=== PATIENT | female | born 1955 | race Caucasian/White ===

== ENCOUNTER 2022-09-08 06:33 | Day surgery (SDC) | payer OTHER, SELFPAY ==
[2022-09-08] VITALS (7 sets, daily range): BP systolic 131–149; BP diastolic 65–80; PULSE 77–99; RESP 12–18; TEMP 36.6–36.7; O2SAT 95–97; BMI 27.3
[2022-09-08] MEDS: CEFAZOLIN 2 GM INJ IVP (06:45)
[2022-09-08] MEDS: lidocaine HCL 2 % MULTIDOSE 20 ML VIAL 7 ML INJECTION (07:26)
[2022-09-08] MEDS: BUPIVACAINE 0.5% 30 ML 5 ML INJECTION (07:26)
--- NOTE | 2022-09-08 07:55 | PM.ORPRC ---
Procedure Note Date of procedure: 09/08/22 Procedure: Preop diagnosis: Right thumb stenosing tenosynovitis Postop diagnosis: Right thumb stenosing tenosynovitis Procedure: Right thumb A1 santi release Anesthesia: Local Surgeon: Juwan King MD anesthesiologist assistant: BOYD Forbes EBL: 0 mL Complications: None Specimens: None Drains: None Preoperative antibiotics: Ancef 1 g Indications: The patient has a history of right thumb painful catching and locking. Despite appropriate non operative management including flexor tendon sheath corticosteroid injections they continue to have symptoms. Operative intervention was recommended. The risks, benefits alternatives and expected outcomes were discussed in detail. These included but were not limited to: Infection, bleeding, injury to blood vessel or nerve, venous thromboembolism. All questions were answered to their satisfaction. The patient was placed supine on the operating room table. Local anesthesia was established with 0.5% Marcaine without epinephrine and 2% lidocaine without epinephrine. The hand was prepped and draped in usual sterile fashion. The limb was elevated the forearm pneumatic tourniquet was inflated to 250 mm of mercury. A transverse incision was made in the MP flexion crease of the thumb. Subcutaneous dissection was taken through the palmar fascia to the flexor tendons with the tenotomy scissors. The A1 santi was released with the 15 blade and the tenotomy scissors. The edges of the A1 santi were sharply resected. Active flexion and extension of the thumb shows no catching or locking, no bowstringing of the flexor tendons. The wound was closed with interrupted nylon sutures. A dry dressing was applied the tourniquet was released. Sponge and needle counts were correct x 2. The patient tolerated the procedure well, there were no apparent complications. They were sent to same day surgery in satisfactory condition. Plan: Use of the hand as tolerates. Discontinue the intraoperative dressing on postoperative day 3 and may get the wound wet as tolerates. Follow up in the office in 2 weeks for a wound check and suture removal.
== END 2022-09-08 08:15 | disposition home or self-care (01) ==
PROVIDERS: PCP Physician Assistant Medical; Visit Provider Orthopaedic Surgery
PROC: (CPT 26055; principal; 2022-09-08 07:30)
DX: M65.311 Trigger thumb, right thumb (principal); M65.841 Other synovitis and tenosynovitis, right hand
CPT/HCPCS: 26055; J0690; J3490

== ENCOUNTER 2022-10-11 00:04 | Emergency (ER) | payer OTHER, SELFPAY ==
[2022-10-11 00:12] VITALS: BP 158/77; PULSE 86; RESP 16; TEMP 35.7; O2SAT 97; BMI 27.4
[2022-10-11] MEDS: TETANUS/DIPHTH/PERTUSSIS 0.5 ML SYRINGE IM (01:39)
--- NOTE | 2022-10-11 01:48 | ED_ITS ---
HPI - Wound/Laceration General Date Seen: 10/11/22 Chief Complaint: Laceration/Wound Stated Complaint: cut left thumb Time Seen by Provider: 10/11/22 00:16 Source: patient and family Mode of arrival: ambulatory Limitations: no limitations History of Present Illness HPI narrative: Patient is 58-year-old female who presents here after she lacerated her left thumb, on a pot approximately 5:00 p.m., it has been bleeding on and off she called her daughter bee and suggested that she comes in. Extremity Location: Left: hand Place: home Patient tetanus UTD: Yes Context: accidental Associated symptoms: none Related Data Home Medications Medication Instructions Recorded Confirmed amlodipine 5 mg tablet mg PO 08/21/22 09/21/22 azelastine 137 mcg (0.1 %) nasal 2 intranasal BID 08/21/22 09/21/22 spray aerosol hydroxyzine HCl 25 mg tablet mg PO 08/21/22 09/21/22 lorazepam 1 mg tablet mg PO PRN 08/21/22 09/21/22 metoprolol tartrate 50 mg tablet mg PO 08/21/22 09/21/22 triamcinolone acetonide 0.1 % 1 applic topical TID 08/21/22 10/11/22 topical cream aspirin 81 mg capsule 81 mg PO DAILY 10/11/22 10/11/22 Allergies Allergy/AdvReac Type Severity Reaction Status Date / Time atorvastatin Allergy Verified 10/11/22 00:16 azithromycin Allergy Verified 10/11/22 00:16 hydrocodone Allergy Verified 10/11/22 00:16 latex Allergy Verified 10/11/22 00:16 methylprednisolone Allergy Verified 09/08/22 06:43 Review of Systems Status of ROS: Reports: 6 or more systems reviewed and unremarkable except as noted in History and below [facility] Medical History Bronchitis H/O benign breast biopsy Pneumonia Surgical History H/O: hysterectomy History of 2 sections S/P trigger finger release (09/08/22) Trigger thumb, right thumb (09/08/22) Social History Smoking Status: Current every day smoker What tobacco products do you use: cigarettes Do you use any of these nicotine containing products: None Second hand tobacco smoke exposure: No Exam Narrative: Exam Narrative: On examination on the left thumb, there is a laceration that is just distal to the IP flexion crease, on the radial side of the thumb. It is approximately 2 cm in length, no foreign body is seen, is not acutely bleeding she has normal cap refill common able to move her finger normally. I discussed with her that, that I think this is amenable to glue, she will need her tetanus updated at its 2013, After getting the nurse to clean this out applying some let, I was able to glue this atraumatically, no blood loss, no complications. Const: Vital Signs, click to edit/add: Vital Signs - 24 hr 10/11/22 00:12 Temperature 96.3 F L Pulse Rate [Right Pulse Oximeter] 86 Respiratory Rate 16 Blood Pressure [Le ft Upper Arm] 158/77 H Pulse Oximetry 97 Oxygen Delivery Me thod Room Air Documenting provider has reviewed patient's vital signs: yes Course Vital Signs Vital signs: Initial Vital Signs Temperature 96.3 F L 10/11/22 00:12 Temperature Source Temporal Artery Scan 10/11/22 00:12 Pulse Rate 86 10/11/22 00:12 Respiratory Rate 16 10/11/22 00:12 Blood Pressure 158/77 H 10/11/22 00:12 Blood Pressure Mean 104 10/11/22 00:12 Blood Pressure Position Sitting 10/11/22 00:12 Pulse Oximetry 97 10/11/22 00:12 Oxygen Delivery Method 10/11/22 00:12 Vital Signs Temperature 96.3 F L 10/11/22 00:12 Pulse Rate 86 10/11/22 00:12 Respiratory Rate 16 10/11/22 00:12 Blood Pressure 158/77 H 10/11/22 00:12 Pulse Oximetry 97 10/11/22 00:12 Oxygen Delivery Method 10/11/22 00:12 Temperature 96.3 F L 10/11/22 00:12 Pulse Rate 86 10/11/22 00:12 Respiratory Rate 16 10/11/22 00:12 Blood Pressure 158/77 H 10/11/22 00:12 Pulse Oximetry 97 10/11/22 00:12 Oxygen Delivery Method 10/11/22 00:12 Discharge Plan Discharge Clinical Impression: Laceration Patient Disposition: Home, Self-Care Condition: Stable Instructions: Finger Laceration (ED), Skin Adhesive Care (ED) Additional Instructions: Home rest, avoidance of using that thumb for hand for the next 24 hours after that light duty. Suggest no use of antibiotic ointment, follow-up of signs symptoms infection occur. Prescriptions: No Action azelastine 137 mcg (0.1 %) aerosol,spray 2 intranasal BID triamcinolone acetonide 0.1 % cream 1 applic topical TID metoprolol tartrate 50 mg tablet PO amlodipine 5 mg tablet PO lorazepam 1 mg tablet PO PRN hydroxyzine HCl 25 mg tablet PO aspirin 81 mg capsule 81 mg PO DAILY Follow Up/Referrals: Maranda Terry PA-C [Primary Care Provider] - Stand Alone Forms: [facility] Info Instructions
== END 2022-10-11 01:54 | disposition home or self-care (01) ==
PROVIDERS: Emergency Provider Family Medicine; PCP Physician Assistant Medical
DX: S61.012A Laceration without foreign body of left thumb without damage to nail, initial encounter (principal); W26.9XXA Contact with unspecified sharp object(s), initial encounter
CPT/HCPCS: 12001; 90471; 90715; 99283

== ENCOUNTER 2023-12-11 14:56 | Emergency (ER) | payer MEDICARE, SELFPAY ==
[2023-12-11 15:08] VITALS: BP 147/75; PULSE 82; RESP 18; TEMP 36.8; O2SAT 95; BMI 29.3
--- NOTE | 2023-12-11 15:32 | ED_ITS ---
HPI - General Adult General Date Seen: 12/11/23 Chief complaint: Dizziness/Vertigo Stated complaint: dizzy, weak Time Seen by Provider: 12/11/23 15:11 Source: patient Mode of arrival: ambulatory Limitations: no limitations History of Present Illness HPI narrative: Patient is a 68-year-old woman who for the past couple of weeks has been having problems with vertigo when she lays down. Today she said that she sat up and noticed symptoms, and had to fall back down to stabilize herself. She called the nurse line and was advised to come to the ER right away. She has not had any difficulty walking, has not had any other neurologic complaints, no headache, chest pain, fevers, difficulty breathing or other symptoms. She does have a history she says of lots of problems with her throat and ears with recurrent strep, ear infections, loss of her hearing in her right ear few years ago which led to a lot of imaging to look for tumor all of which she says was negative. No problems with her hearing or tinnitus today. She is worried that she might be developing an intolerance to the amlodipine which she started about a year ago, she says she commonly will develop problems with medications after being on them for a while. Related Data Home Medications Medication Instructions Recorded Confirmed amlodipine 5 mg tablet mg PO 08/21/22 09/21/22 azelastine 137 mcg (0.1 %) nasal 2 intranasal BID 08/21/22 09/21/22 spray aerosol hydroxyzine HCl 25 mg tablet mg PO 08/21/22 09/21/22 lorazepam 1 mg tablet mg PO PRN 08/21/22 09/21/22 metoprolol tartrate 50 mg tablet mg PO 08/21/22 09/21/22 triamcinolone acetonide 0.1 % 1 applic topical TID 08/21/22 10/11/22 topical cream aspirin 81 mg capsule 81 mg PO DAILY 10/11/22 10/11/22 Previous Rx's Medication Instructions Recorded meclizine 25 mg tablet 25 mg PO TID #15 tabs 12/11/23 Allergies Allergy/AdvReac Type Severity Reaction Status Date / Time codeine Allergy Intermediate Verified 12/11/23 15:12 atorvastatin Allergy Verified 10/11/22 00:16 azithromycin Allergy Verified 10/11/22 00:16 hydrocodone Allergy Verified 10/11/22 00:16 latex Allergy Verified 10/11/22 00:16 methylprednisolone Allergy Verified 09/08/22 06:43 Review of Systems Status of ROS: Reports: 10 or more systems reviewed and unremarkable except as noted in History and below [facility] Medical History Pneumonia ?J18.9 - Pneumonia, unspecified organism (ICD-10) Bronchitis ?J40 - Bronchitis, not specified as acute or chronic (ICD-10) H/O benign breast biopsy ?Z98.890 - Other specified postprocedural states (ICD-10) Surgical History S/P trigger finger release (09/08/22) ?Z98.890 - Other specified postprocedural states (ICD-10) Trigger thumb, right thumb (09/08/22) ?M65.311 - Trigger thumb, right thumb (ICD-10) History of 2 sections ?Z98.891 - History of uterine scar from previous surgery (ICD-10) H/O: hysterectomy ?Z90.710 - Acquired absence of both cervix and uterus (ICD-10) Social History Smoking Status: Current every day smoker What tobacco products do you use: cigarettes Do you use any of these nicotine containing products: None Second hand tobacco smoke exposure: No How often do you have a drink containing alcohol: never How often do you have six or more drinks on one occasion: Never AUDIT-C Alcohol total score: 0 Non-prescribed substance use: denies use Exam Narrative: Exam Narrative: Vital signs as noted above. In general, an alert, well-appearing patient. Head: Normocephalic, atraumatic. Eyes: Pupils are equal reactive. Extraocular movements are full. Nystagmus on leftward gaze associated with sensation of vertigo. No other nystagmus. ENT: Mucous membranes are moist. Throat is normal. Neck: Supple without lymphadenopathy. Heart: Regular rate and rhythm. No murmur or rub. Lungs: Clear bilaterally. No increased work of breathing, crackles or wheezes. Abdomen: Soft and nontender. No organomegaly. Extremities: Well perfused. No edema. No calf tenderness. Pulses intact. Neurologic: Patient is alert and oriented to person and place. Speech is fluent. Face is symmetric. Moves all extremities equally. Cerebellar function is intact to finger-nose testing. She is able to tandem walk without difficulty. Romberg negative. Affect: Normal. Skin: Warm and dry. Well perfused. Const: Vital Signs, click to edit/add: Vital Signs - 24 hr 12/11/23 15:08 12/11/23 15:45 Temperature 98.2 F Pulse Rate [Pulse Oximeter] 82 Pulse Rate [orthos tatic lying Pulse Oximeter] 77 Pulse Rate [orthos tatic sitting Puls e Oximeter] 82 Pulse Rate [orthos tatic standing Pul se Oximeter] 80 Respiratory Rate 18 Blood Pressure [Ri ght Upper Arm] 147/75 H Blood Pressure [or thostatic lying] 151/71 H Blood Pressure [or thostatic sitting Left Arm] 146/74 H Blood Pressure [or thostatic standing Left Arm] 140/62 H Pulse Oximetry 95 Oxygen Delivery Me thod Room Air Documenting provider has reviewed patient's vital signs: yes Course Course ED Course: Discussed with her that her symptoms are most consistent with mild positional vertigo which is likely related to her inner ear. I do not suspect that this is directly related to her blood pressure medicines as her blood pressure here is mildly hypertensive, she is not bradycardic. I did do an EKG which shows a normal sinus rhythm, ventricular rate of 74, corrected QT is 410 milliseconds, UT is [address] segment changes, unremarkable T-waves. I do not think this represents stroke most likely as symptoms are so strongly positional and she has no neurologic findings on exam. She does note during the course of our conversation that she has had problems with her left shoulder and has had injections there, she does have some pain in left shoulder and into the left trapezius. She has very definable muscle spasm in the trapezius muscle on the left, I do not think her symptoms are suggestive of vertebral artery dissection or coronary artery ischemia. Orthostatics are negative. I have recommended that we try meclizine, have her follow up with primary care. She may be a good candidate for sinus for dizziness and balance if she is not improving. Encouraged her to try this before discontinuing any medications as I think those are less likely to be the culprit, but she can certainly discuss this with her primary doctor. Return any time for acute worsening or new symptoms. Vital Signs Vital signs: Initial Vital Signs Temperature 98.2 F 12/11/23 15:08 Temperature Source Temporal Artery Scan 12/11/23 15:08 Pulse Rate 82 12/11/23 15:08 Respiratory Rate 18 12/11/23 15:08 Blood Pressure 147/75 H 12/11/23 15:08 Blood Pressure Mean 99 12/11/23 15:08 Blood Pressure Position Sitting 12/11/23 15:08 Pulse Oximetry 95 12/11/23 15:08 Oxygen Delivery Method Room Air 12/11/23 15:08 Vital Signs Temperature 98.2 F 12/11/23 15:08 Pulse Rate 82 12/11/23 15:08 Respiratory Rate 18 12/11/23 15:08 Blood Pressure 147/75 H 12/11/23 15:08 Pulse Oximetry 95 12/11/23 15:08 Oxygen Delivery Method Room Air 12/11/23 15:08 Temperature 98.2 F 12/11/23 15:08 Pulse Rate 77 12/11/23 15:45 Respiratory Rate 18 12/11/23 15:08 Blood Pressure 151/71 H 12/11/23 15:45 Pulse Oximetry 95 12/11/23 15:08 Oxygen Delivery Method Room Air 12/11/23 15:08 Discharge Plan Discharge Clinical Impression: Benign paroxysmal positional vertigo Patient Disposition: Home, Self-Care Condition: Stable Instructions: Vertigo (ED) Additional Instructions: Meclizine as prescribed. Follow-up with primary care, consideration of physical therapy for vertigo if not improving. Return to the ER at any time for acute worsening or new symptoms such as fainting, neurologic changes, severe headache. Prescriptions: New meclizine 25 mg tablet 25 mg PO TID Qty: 15 0RF No Action azelastine 137 mcg (0.1 %) aerosol,spray 2 intranasal BID triamcinolone acetonide 0.1 % cream 1 applic topical TID metoprolol tartrate 50 mg tablet PO amlodipine 5 mg tablet PO lorazepam 1 mg tablet PO PRN hydroxyzine HCl 25 mg tablet PO aspirin 81 mg capsule 81 mg PO DAILY Follow Up/Referrals: Maranda Terry PA-C [Primary Care Provider] - Stand Alone Forms: [facility] Info Instructions
[2023-12-11 15:45] VITALS: BP 140/62; BP 146/74; BP 151/71; PULSE 77; PULSE 80; PULSE 82
== END 2023-12-11 16:02 | disposition home or self-care (01) ==
PROVIDERS: Emergency Provider Emergency Medicine; PCP Physician Assistant Medical
DX: H81.10 Benign paroxysmal vertigo, unspecified ear (principal)
CPT/HCPCS: 93005; 99283; 99284

== ENCOUNTER 2024-06-28 14:49 | Observation (INO) | payer MEDICARE, SELFPAY ==
[2024-06-28] VITALS (20 sets, daily range): BP systolic 125–175; BP diastolic 57–83; PULSE 64–79; RESP 18; TEMP 36.4–36.8; O2SAT 91–97; BMI 29.7; BMI 28.6
--- NOTE | 2024-06-28 15:06 | ED_ITS ---
HPI - General Adult General Chief complaint: Dizziness/Vertigo Stated complaint: dizzy, high blood pressure Time Seen by Provider: 06/28/24 15:04 History of Present Illness HPI narrative: c/o left arm tingling and episodes of facial numbness over the past several weeks. dizziness that started yesterday 68-year-old woman presenting to the emergency depart with concern of tingling throughout good portion of her left arm gesturing along the posterior aspect down into her hand particularly the 3rd through 5th fingers that has been present intermittently over the last 2 weeks or so. She has been having similar tingling sensation and left side of her face now over the last 2 days perhaps. No weakness or visual changes. She has also been experiencing, even at rest episodes of brief dizziness that seems to have started yesterday or today. Can be exacerbated with movement though also. Remote history of injury to the left neck area following a [place] tree falling on her. This did result in some residual tingling of her left hand finger tips 3 through 5 as described and chronic pain in the left shoulder neck area. 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 and still it pops underneath her scapula. Also had injuries to cervical and lumbar discs and had received a series of injections over the years. Did improve finally with myofascial release. She has possibly some environmental allergies but isn't feeling like her ears are full. No complaint of headache. Transient nausea. Daughter's been noting blood pressure to be elevated. Also mentions that mom is a smoker. Concern I believe of heart problem or possible stroke. Does carry a lot of pain in the left shoulder area she says. History of frozen shoulder at 1 point. Concern also elevated blood pressure today. Related Data Home Medications ?Medication ?Instructions ?Recorded ?Confirmed amlodipine 5 mg tablet 5 mg PO DAILY 08/21/22 06/29/24 metoprolol tartrate 50 mg tablet 50 mg PO BID 08/21/22 06/29/24 aspirin 81 mg capsule 81 mg PO DAILY 10/11/22 06/29/24 fluticasone propionate 50 2 spray intranasal DAILY 06/29/24 06/29/24 mcg/actuation nasal spray,suspension Allergies Allergy/AdvReac Type Severity Reaction Status Date / Time codeine Allergy Intermediate Verified 06/28/24 14:58 atorvastatin Allergy Verified 06/28/24 14:58 azithromycin Allergy Verified 06/28/24 14:58 hydrocodone Allergy Verified 06/28/24 14:58 latex Allergy Verified 06/28/24 14:58 methylprednisolone Allergy Verified 06/28/24 14:58 Review of Systems Status of ROS: Reports: 6 or more systems reviewed and unremarkable except as noted in History and below [facility] Medical History (Updated 06/29/24 @ 18:29 by Leanne Belcher MD) Hyperlipidemia ?E78.5 - Hyperlipidemia, unspecified (ICD-10) Essential (primary) hypertension ?I10 - Essential (primary) hypertension (ICD-10) H/O benign breast biopsy ?Z98.890 - Other specified postprocedural states (ICD-10) Surgical History (Updated 06/28/24 @ 20:42 by Leanne Belcher MD) S/P trigger finger release (09/08/22) ?Z98.890 - Other specified postprocedural states (ICD-10) Trigger thumb, right thumb (09/08/22) ?M65.311 - Trigger thumb, right thumb (ICD-10) History of 2 sections ?Z98.891 - History of uterine scar from previous surgery (ICD-10) H/O: hysterectomy ?Z90.710 - Acquired absence of both cervix and uterus (ICD-10) Social History (Updated 06/28/24 @ 22:19 by Leanne Belcher MD) Narrative: Lives with Gregorio in [place], he would be MDM if needed. Requests Full Code status. 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 What is your current living situation?: I presently have a place to live Problems where you live: no known problems Problems where you live details: n/a In the past 12 months, utilities in danger of being shut off: no In past 12 months, lack of transportation kept you from medical appts, meetings, work, or getting things needed for daily living: no In the past 12 mos, have been you worried that your food would run out before you had money to buy more?: never true In the past 12 mos, the food you bought just didn't last and you didn't have money to buy more?: never true Smoking Status: Current every day smoker What tobacco products do you use: cigarettes Smoking packs per day: 0.5 Smoking cigarettes per day: 10.0 Years smoked: 53 Smoking pack-years: 26.50 Do you use any of these nicotine containing products: None Second hand tobacco smoke exposure: No How often do you have a drink containing alcohol: never How often do you have six or more drinks on one occasion: Never AUDIT-C Alcohol total score: 0 Non-prescribed substance use: denies use Caffeine: Yes How often does anyone, including family, friends and others, physically hurt you : never How often does anyone, including family, friends and others, insult or talk down to you: never How often does anyone, including family, friends and others, threaten you with harm: never How often does anyone, including family, friends and others, scream or curse at you: never Exam Narrative: Exam Narrative: Pleasant. NAD. Moving all extremities without difficulty. No weakness appreciated. Subjective altered sensation in areas as described. Popping reproduced subscapular on the left. Cranial nerves 2-12 intact. Has a light resting tremor of her head. Extraocular movements are full without nystagmus but reportedly reproduce some of this dizziness. Rotational movement of the head does not at this time. No facial swelling erythema or tenderness. Heart in regular rate and rhythm without murmur or gallop. Lungs are clear. Circular scar in the right mid urbina about a cm across. No lower extremity edema. Well- perfused. Const: Vital Signs, click to edit/add: Vital Signs - 24 hr 06/28/24 14:56 06/28/24 15:07 06/28/24 15:15 Temperature 97.8 F Pulse Rate 72 69 Pulse Rate [Right Pulse Oximeter] 76 Respiratory Rate 18 Blood Pressure Blood Pressure [Ri ght Upper Arm] 175/80 H Pulse Oximetry 95 95 94 Oxygen Delivery Me thod Room Air 06/28/24 15:30 06/28/24 15:45 06/28/24 16:00 Temperature Pulse Rate 65 78 68 Pulse Rate [Right Pulse Oximeter] Respiratory Rate Blood Pressure Blood Pressure [Ri ght Upper Arm] Pulse Oximetry 95 95 96 Oxygen Delivery Me thod 06/28/24 16:42 06/28/24 16:43 06/28/24 16:44 Temperature Pulse Rate 68 74 Pulse Rate [Right Pulse Oximeter] 70 Respiratory Rate 18 Blood Pressure 148/83 H Blood Pressure [Ri ght Upper Arm] 148/83 H Pulse Oximetry 94 91 95 Oxygen Delivery Me thod Room Air 06/28/24 18:37 06/28/24 18:38 06/28/24 18:45 Temperature Pulse Rate 64 65 65 Pulse Rate [Right Pulse Oximeter] Respiratory Rate Blood Pressure 138/65 Blood Pressure [Ri ght Upper Arm] Pulse Oximetry 95 94 91 Oxygen Delivery Me thod 06/28/24 19:00 06/28/24 19:15 06/28/24 19:30 Temperature Pulse Rate 65 72 71 Pulse Rate [Right Pulse Oximeter] Respiratory Rate Blood Pressure Blood Pressure [Ri ght Upper Arm] Pulse Oximetry 91 95 92 Oxygen Delivery Me thod 06/28/24 19:45 06/28/24 20:00 Temperature Pulse Rate 70 77 Pulse Rate [Right Pulse Oximeter] Respiratory Rate Blood Pressure Blood Pressure [Ri ght Upper Arm] Pulse Oximetry 95 96 Oxygen Delivery Me thod Documenting provider has reviewed patient's vital signs: yes Course Vital Signs Vital signs: Initial Vital Signs Temperature 97.8 F 06/28/24 14:56 Temperature Source Temporal Artery Scan 06/28/24 14:56 Pulse Rate 76 06/28/24 14:56 Respiratory Rate 18 06/28/24 14:56 Blood Pressure 175/80 H 06/28/24 14:56 Blood Pressure Mean 111 H 06/28/24 14:56 Blood Pressure Position Sitting 06/28/24 14:56 Pulse Oximetry 95 06/28/24 14:56 Oxygen Delivery Method Room Air 06/28/24 14:56 Vital Signs Temperature 97.8 F 06/28/24 14:56 Pulse Rate 76 06/28/24 14:56 Respiratory Rate 18 06/28/24 14:56 Blood Pressure 175/80 H 06/28/24 14:56 Pulse Oximetry 95 06/28/24 14:56 Oxygen Delivery Method Room Air 06/28/24 14:56 Temperature 98.2 F 06/29/24 15:00 Pulse Rate 76 06/29/24 15:00 Respiratory Rate 16 06/29/24 15:00 Blood Pressure 147/67 H 06/29/24 15:00 Pulse Oximetry 98 06/29/24 15:00 Oxygen Delivery Method Room Air 06/29/24 15:00 Medications Administered Medications: Discontinued Medications Generic Name Dose Route Start Last Admin Trade Name Freq PRN Reason Stop Dose Admin Aspirin 81 mg 06/29/24 09:00 06/29/24 09:00 Aspirin 81 Mg Tablet Ec PO 81 mg DAILY GABE Administration Sodium Chloride 1,000 mls @ 1,000 mls/hr 06/28/24 15:53 06/28/24 18:36 0.9 % Sodium Chloride 1000 Ml IV 06/28/24 16:52 Infused .Q1H ONE Infusion Sodium Chloride 5 ml 06/29/24 09:00 06/29/24 09:01 Sodium Chloride 0.9 % (Flush) 10 Ml Syringe IVF 5 ml BID GABE Administration Medical Decision Making MDM Narrative Medical decision making narrative: Symptoms of dizziness do not appear to be isolated to movement to suggest only a peripheral component. The waxing and waning or intermittent nature of this sensation she is describing does make me concern for vascular etiology. I think it would be prudent to go ahead and do imaging of head and neck CT, CTA. The doubtful to have something like MS I think at this point. Probable that this is related to the brachial plexus area injury that seems to be described or possibly discogenic in nature. Concerning I think also is the new involvement of the face almost seems retrograde somehow and involvement of face and arm unusual. Head CT noncontrast looks unremarkable by my read. I did review all images. Deferred radiology over-read as below TECHNIQUE: Standard helical CT image acquisition of the neck up to the skull base after bolus intravenous contrast enhancement. 2D and 3D MIP images for post-processing were performed and interpreted on an independent workstation and 3D images were permanently archived. COMPARISON: CT same day. FINDINGS: The origins of the great vessels from the aortic arch are patent. The origin of the right vertebral artery is patent. The origin of the left vertebral artery is patent. The common carotid arteries are patent. There is a moderate (65%) stenosis at the origin of the right internal carotid artery by NASCET criteria. This is caused by calcified plaque with a 1.5mm residual lumen. There is a mild (50%) stenosis at the origin of the left internal carotid artery by NASCET criteria. This is caused by calcified plaque with a 2mm residual lumen. The rest of the cervical segments of the internal carotid arteries are patent up to the skull base. The left vertebral artery is dominant. The cervical segments of the vertebral arteries are patent up to the skull base. The visualized lung apices are unremarkable. The thyroid gland is unremarkable. The soft tissues of the neck are unremarkable. There are degenerative changes in the cervical spine. IMPRESSION: 1. Moderate (65%) stenosis at the origin of the right internal carotid artery by NASCET criteria. This is caused by calcified plaque with a 1.5mm residual lumen. 2. Mild (50%) stenosis at the origin of the left internal carotid artery by NASCET criteria. This is caused by calcified plaque with a 2mm residual lumen. TECHNIQUE: Standard helical CT image acquisition through the intracranial circulation following intravenous administration of contrast material with bolus tracking. 2D and 3D MIP images for post-processing were performed and interpreted on an independent workstation and 3D images were permanently archived. COMPARISON: CT same day. FINDINGS: There is no cerebral aneurysm or large vessel occlusion. The right internal carotid artery is normal. The right middle cerebral artery and its branches are normal. The right anterior cerebral artery and its branches are normal. The left internal carotid artery is normal. The left middle cerebral artery and its branches are normal. The left anterior cerebral artery and its branches are normal. The anterior communicating artery is well visualized and appears normal. The right vertebral artery and PICA are normal. The left vertebral artery and PICA are normal. The left vertebral artery is dominant. The basilar artery is patent and appears normal. The right posterior cerebral artery is normal. The left posterior cerebral artery is normal. The visualized venous structures are patent. IMPRESSION: Patent proximal intracranial vasculature without intracranial aneurysms. Discussed with Stroke Neuro on-call. At this point unable to obtain MRI. Recommendations are to admit for MRI brain. I wonder if might have cervical spine injury and perhaps there are some unusual retrograde symptoms. Hospitalist is thankfully accepting admission for monitoring and morning MRI. Medical Records Medical records reviewed: Yes I reviewed the patient's medical records Lab Data Lab results reviewed: Yes I reviewed the patient's lab results Labs: Lab Results 06/28/24 06/28/24 Range/Units 16:15 16:16 WBC 11.49 H (4.50-11.00) K/uL RBC 4.72 (4.00-5.20) m/uL Hgb 15.0 (12.0-16.0) gm/dL Hct 45.8 (33.0-51.0) % MCV 97 (80-100) fL MCH 32 (26-34) pg MCHC 33 (32-36) gm/dL RDW Coeff of Michael 13.5 (11.5-15.5) % Plt Count 415 (140-440) K/uL Neut % (Auto) 64.2 (42.0-72.0) % Lymph % (Auto) 25.8 (20-44) % [place] % (Auto) 5.8 (0.0-11.0) % Eos % (Auto) 3.6 (0.0-7.0) % Baso % (Auto) 0.4 (0.0-3.0) % Neut # (Auto) 7.40 H (1.7-7.0) K/uL Lymph # (Auto) 3.00 H (0.90-2.90) K/uL [place] # (Auto) 0.70 (0.00-0.90) K/UL Eos # (Auto) 0.40 (0.00-0.50) K/uL Baso # (Auto) 0.00 (0.00-0.30) K/uL Abs Immat Gran (auto) 0.00 (0.00-0.30) K/uL Imm/Tot Granulo (auto) 0.2 % INR 0.91 (0.91-1.10) APTT 29 (23-33) Seconds Sodium 137 (135-149) mmol/L Potassium 4.3 (3.6-5.1) mmol/L Chloride 106 (96-114) mmol/L Carbon Dioxide 23 (20-32) mmol/L Anion Gap 8 (7-15) mEq/L BUN 16 (7-30) mg/dL Creatinine 0.8 (0.5-1.5) mg/dL Estimated Creat Clear 39.50 Estimated GFR 79 ml/min Glucose 94 (60-115) mg/dL Hemoglobin A1c 5.9 H (0-5.6) % Calcium 10.1 (8.4-10.6) mg/dL POC Creatinine 0.8 (0.6-1.3) mg/dl ECG Data Attestation: I personally reviewed and interpreted this ECG as follows: (Normal sinus rhythm at a rate of 66) Discharge Plan Discharge Clinical Impression: Paresthesia Patient Disposition: Admitted As Observation Condition: Stable Activity Level: Activity as Tolerated Discharge Diet: Low Fat/Low Cholesterol
--- NOTE | 2024-06-28 15:50 | CRLHL7_ITS ---
For Patients: As a result of the Century Cures Act, medical imaging exams and procedure reports are released immediately into your electronic medical record. You may view this report before your referring provider. If you have questions, please contact your health care provider. DATE: 06/29/2024 CLINICAL HISTORY: Patient with focal neurological deficits. TECHNIQUE: Standard helical CT image acquisition through the intracranial circulation following intravenous administration of contrast material with bolus tracking. 2D and 3D MIP images for post-processing were performed and interpreted on an independent workstation and 3D images were permanently archived. COMPARISON: CT same day. FINDINGS: There is no cerebral aneurysm or large vessel occlusion. The right internal carotid artery is normal. The right middle cerebral artery and its branches are normal. The right anterior cerebral artery and its branches are normal. The left internal carotid artery is normal. The left middle cerebral artery and its branches are normal. The left anterior cerebral artery and its branches are normal. The anterior communicating artery is well visualized and appears normal. The right vertebral artery and PICA are normal. The left vertebral artery and PICA are normal. The left vertebral artery is dominant. The basilar artery is patent and appears normal. The right posterior cerebral artery is normal. The left posterior cerebral artery is normal. The visualized venous structures are patent. IMPRESSION: Patent proximal intracranial vasculature without intracranial aneurysms. Please note that all CT scans at this facility use dose modulation, iterative reconstruction, and/or weight-based dosing when appropriate to reduce radiation dose to as low as reasonably achievable. Dictated by Jaydon Lyn MD @ 06/29/2024 10:39:27 AM (Electronically Signed)
--- NOTE | 2024-06-28 15:50 | CRLHL7_ITS ---
For Patients: As a result of the Century Cures Act, medical imaging exams and procedure reports are released immediately into your electronic medical record. You may view this report before your referring provider. If you have questions, please contact your health care provider. DATE: 06/28/2024 CLINICAL HISTORY: Patient with focal neurological deficits. TECHNIQUE: Standard helical CT image acquisition of the neck up to the skull base after bolus intravenous contrast enhancement. 2D and 3D MIP images for post-processing were performed and interpreted on an independent workstation and 3D images were permanently archived. COMPARISON: CT same day. FINDINGS: The origins of the great vessels from the aortic arch are patent. The origin of the right vertebral artery is patent. The origin of the left vertebral artery is patent. The common carotid arteries are patent. There is a moderate (65%) stenosis at the origin of the right internal carotid artery by NASCET criteria. This is caused by calcified plaque with a 1.5mm residual lumen. There is a mild (50%) stenosis at the origin of the left internal carotid artery by NASCET criteria. This is caused by calcified plaque with a 2mm residual lumen. The rest of the cervical segments of the internal carotid arteries are patent up to the skull base. The left vertebral artery is dominant. The cervical segments of the vertebral arteries are patent up to the skull base. The visualized lung apices are unremarkable. The thyroid gland is unremarkable. The soft tissues of the neck are unremarkable. There are degenerative changes in the cervical spine. IMPRESSION: 1. Moderate (65%) stenosis at the origin of the right internal carotid artery by NASCET criteria. This is caused by calcified plaque with a 1.5mm residual lumen. 2. Mild (50%) stenosis at the origin of the left internal carotid artery by NASCET criteria. This is caused by calcified plaque with a 2mm residual lumen. Please note that all CT scans at this facility use dose modulation, iterative reconstruction, and/or weight-based dosing when appropriate to reduce radiation dose to as low as reasonably achievable. Dictated by Jaydon Lyn MD @ 06/29/2024 10:33:01 AM (Electronically Signed)
--- NOTE | 2024-06-28 15:50 | CRLHL7_ITS ---
For Patients: As a result of the Cures Act, medical imaging exams and procedure reports are released immediately into your electronic medical record. You may view this report before your referring provider. If you have questions, please contact your health care provider. INDICATION: Left face and arm paresthesias. COMPARISON: None. TECHNIQUE: Noncontrast CT head. FINDINGS: Normal brain parenchymal morphology. No acute intracranial hemorrhage, acute infarct, mass effect, or fracture. No midline shift. No abnormal ventricular dilatation. Normal calvarium and skull base. Visualized paranasal sinuses and mastoid air cells are clear. Normal orbits bilaterally. IMPRESSION: 1. No acute intracranial abnormality Please note that all CT scans at this facility use dose modulation, iterative reconstruction, and/or weight-based dosing when appropriate to reduce radiation dose to as low as reasonably achievable. Dictated by Avni Kramer MD @ 06/28/2024 6:13:16 PM (Electronically Signed)
[2024-06-28 16:31] LABS: Creatinine, Point-of-Care* 0.8 mg/dl (0.6-1.3)
[2024-06-28 16:39] LABS: Basophils Percent Auto 0.4 % (0.0-3.0); Eosinophils Percent Auto 3.6 % (0.0-7.0); Hematocrit 45.8 % (33.0-51.0); Immature Granulocytes Pct Auto 0.2 %; Lymphocytes Percent Auto 25.8 % (20-44); Mean Corpuscular HGB Conc 33 gm/dL (32-36); Mean Corpuscular Hemoglobin 32 pg (26-34); Mean Corpuscular Volume 97 fL (80-100); Monocytes Percent Auto 5.8 % (0.0-11.0); Neutrophils Percent Auto 64.2 % (42.0-72.0); Platelet Count* 415 K/uL (140-440); RDW Coefficient of Variation % 13.5 % (11.5-15.5); Red Blood Count 4.72 m/uL (4.00-5.20); White Blood Count* 11.49 K/uL (4.50-11.00)
[2024-06-28 16:47] LABS: Slide Review Reflex No
[2024-06-28 16:56] LABS: Chloride* 106 mmol/L (96-114)
[2024-06-28 16:57] LABS: Potassium* 4.3 mmol/L (3.6-5.1); Sodium* 137 mmol/L (135-149)
[2024-06-28 16:58] LABS: INR 0.91 (0.91-1.10); Prothrombin Time 12.8 Seconds
[2024-06-28 16:59] LABS: Creatinine* 0.8 mg/dL (0.5-1.5); Estimated Glomerular Filt Rate 79 ml/min; Partial Thromboplastin Time* 29 Seconds (23-33)
[2024-06-28 17:00] LABS: Anion Gap 8 mEq/L (7-15); Blood Urea Nitrogen* 16 mg/dL (7-30); Calcium* 10.1 mg/dL (8.4-10.6); Carbon Dioxide* 23 mmol/L (20-32); Glucose* 94 mg/dL (60-115)
[2024-06-28] MEDS: 0.9 % SODIUM CHLORIDE 1000 ml 1,000 ML IV (17:08)
--- NOTE | 2024-06-28 20:30 | P.IMHP_ITS ---
Hospitalist- H&P: HPI History of Present Illness Date Seen: 06/28/24 Chief complaint: dizzy, high blood pressure Narrative: Jess Angel is a 68 year old female who presented to the ER today with LUE paresthesias, primarily L 3rd-5th fingers, present for about 2 weeks. In the last two days, she started also noting numbness and tingling of the L side of her face; no accompanying visual changes, no facial droop. She initially thought this was related to an old injury (remotely, had a large Wolf[place] fall on her - still gets intermittent L scapular pain), but then started having dizziness today. Risk factors for CVA: tobacco use (1/2 ppd), Essential HTN, hyperlipidemia (last lipids >300, intolerant of statin per chart review). ER Course and Findings: - no acute abnormalities on head CT - CTA of head and neck: 60-70% stenosis R carotid bulb, plaque with <50% narrowing of L carotid bulb - Stroke Neurology consulted, recommend MRI, unable to complete in ER at this hour, admitted for observation and imaging Review of Systems Narrative: - no LE symptoms - no speech deficits - daughter feels like Jess has had a mil d head tremor over the past few days; Jess hasn't noted this, but endorses that she occasionally will have a tremor when her L shoulder/scapula acts up - no chest pain, no palpitations PFSH PFS Medical History (Updated 06/28/24 @ 22:24 by Leanne Belcher MD) Hyperlipidemia ?E78.5 - Hyperlipidemia, unspecified (ICD-10) Essential (primary) hypertension ?I10 - Essential (primary) hypertension (ICD-10) H/O benign breast biopsy ?Z98.890 - Other specified postprocedural states (ICD-10) Surgical History (Updated 06/28/24 @ 20:42 by Leanne Belcher MD) S/P trigger finger release (09/08/22) ?Z98.890 - Other specified postprocedural states (ICD-10) Trigger thumb, right thumb (09/08/22) ?M65.311 - Trigger thumb, right thumb (ICD-10) History of 2 sections ?Z98.891 - History of uterine scar from previous surgery (ICD-10) H/O: hysterectomy ?Z90.710 - Acquired absence of both cervix and uterus (ICD-10) Social History (Updated 06/28/24 @ 22:19 by Leanne Belcher MD) Narrative: Lives with Gregorio in [place], he would be MDM if needed. Requests Full Code status. 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 What is your current living situation?: I presently have a place to live Problems where you live: no known problems Problems where you live details: n/a In the past 12 months, utilities in danger of being shut off: no In past 12 months, lack of transportation kept you from medical appts, meetings, work, or getting things needed for daily living: no In the past 12 mos, have been you worried that your food would run out before you had money to buy more?: never true In the past 12 mos, the food you bought just didn't last and you didn't have money to buy more?: never true Smoking Status: Current every day smoker What tobacco products do you use: cigarettes Smoking packs per day: 0.5 Smoking cigarettes per day: 10.0 Years smoked: 53 Smoking pack-years: 26.50 Do you use any of these nicotine containing products: None Second hand tobacco smoke exposure: No How often do you have a drink containing alcohol: never How often do you have six or more drinks on one occasion: Never AUDIT-C Alcohol total score: 0 Non-prescribed substance use: denies use Caffeine: Yes How often does anyone, including family, friends and others, physically hurt you : never How often does anyone, including family, friends and others, insult or talk down to you: never How often does anyone, including family, friends and others, threaten you with harm: never How often does anyone, including family, friends and others, scream or curse at you: never Meds Home Medications and Allergies Home Medications ?Medication ?Instructions ?Recorded ?Confirmed ?Type amlodipine 5 mg tablet See Rx Instructions PO .COMPLEX 08/21/22 06/28/24 History azelastine 137 mcg (0.1 %) nasal 2 intranasal BID 08/21/22 09/21/22 History spray hydroxyzine HCl 25 mg tablet mg PO 08/21/22 09/21/22 History lorazepam 1 mg tablet mg PO PRN 08/21/22 09/21/22 History metoprolol tartrate 50 mg tablet See Rx Instructions PO .COMPLEX 08/21/22 06/28/24 History triamcinolone acetonide 0.1 % 1 applic topical TID 08/21/22 10/11/22 History topical cream aspirin 81 mg capsule 81 mg PO DAILY 10/11/22 10/11/22 History Allergies Allergy/AdvReac Type Severity Reaction Status Date / Time codeine Allergy Intermediate Verified 06/28/24 14:58 atorvastatin Allergy Verified 06/28/24 14:58 azithromycin Allergy Verified 06/28/24 14:58 hydrocodone Allergy Verified 06/28/24 14:58 latex Allergy Verified 06/28/24 14:58 methylprednisolone Allergy Verified 06/28/24 14:58 Exam Narrative: Exam Narrative: GEN: Alert and oriented, sitting comfortably in bed, nontoxic HEENT: PERRL and EOMIs bilaterally, normal oropharynx, tongue protrudes midline CV: RRR, No concerning murmurs R: LCTA bilaterally without concerning wheezing Ext: wwp, no concerning edema Skin: No concerning skin lesions or rashes on exposed skin Neuro: CN 2-12 intact, no resting tremor, negative pronator drift, symmetric mobile sales assistant strength, symmetric sensation subjectively, no dysmetria on finger to nose testing Psych: Appropriate Const: Vital Signs, click to edit/add: Vital Signs - 24 hr 06/28/24 14:56 06/28/24 15:07 06/28/24 15:15 Temperature 97.8 F Pulse Rate 72 69 Pulse Rate [Right Pulse Oximeter] 76 Respiratory Rate 18 Blood Pressure Blood Pressure [Ri ght Upper Arm] 175/80 H Pulse Oximetry 95 95 94 Oxygen Delivery Me thod Room Air 06/28/24 15:30 06/28/24 15:45 06/28/24 16:00 Temperature Pulse Rate 65 78 68 Pulse Rate [Right Pulse Oximeter] Respiratory Rate Blood Pressure Blood Pressure [Ri ght Upper Arm] Pulse Oximetry 95 95 96 Oxygen Delivery Me thod 06/28/24 16:42 06/28/24 16:43 06/28/24 16:44 Temperature Pulse Rate 68 74 Pulse Rate [Right Pulse Oximeter] 70 Respiratory Rate 18 Blood Pressure 148/83 H Blood Pressure [Ri ght Upper Arm] 148/83 H Pulse Oximetry 94 91 95 Oxygen Delivery Me thod Room Air 06/28/24 18:37 06/28/24 18:38 06/28/24 18:45 Temperature Pulse Rate 64 65 65 Pulse Rate [Right Pulse Oximeter] Respiratory Rate Blood Pressure 138/65 Blood Pressure [Ri ght Upper Arm] Pulse Oximetry 95 94 91 Oxygen Delivery Me thod 06/28/24 19:00 06/28/24 19:15 06/28/24 19:30 Temperature Pulse Rate 65 72 71 Pulse Rate [Right Pulse Oximeter] Respiratory Rate Blood Pressure Blood Pressure [Ri ght Upper Arm] Pulse Oximetry 91 95 92 Oxygen Delivery Me thod 06/28/24 19:45 06/28/24 20:00 Temperature Pulse Rate 70 77 Pulse Rate [Right Pulse Oximeter] Respiratory Rate Blood Pressure Blood Pressure [Ri ght Upper Arm] Pulse Oximetry 95 96 Oxygen Delivery Me thod Hospitalist - H&P: Result Labs Labs: Short CBC 06/28/24 Range/Units 16:16 WBC 11.49 H (4.50-11.00) K/uL Hgb 15.0 (12.0-16.0) gm/dL Hct 45.8 (33.0-51.0) % Plt Count 415 (140-440) K/uL BMP 06/28/24 16:16 Sodium 137 Potassium 4.3 Chloride 106 Carbon Dioxide 23 BUN 16 Creatinine 0.8 Glucose 94 Calcium 10.1 Assessment and Plan Assessment and plan (1) Dizziness: Problem comment: - ddx: CVA, cerebrovascular disease, BPPV - labs stable, no evidence of anemia or electrolyte abnormality - brain MRI ordered Status: Acute (2) Paresthesia: Problem comment: - intermittent, CVA vs flare of previous cervical injury - consider imaging of cervical spine pending course and MRI brain findings Status: Acute (3) Essential (primary) hypertension: Problem comment: - on Amlodipine and Metoprolol, allowing elevated BPs at this time during CVA workup Status: Acute (4) Hyperlipidemia: Problem comment: - total cholesterol >300, LDL >200 on 02/2024 labs, intolerant of statin - follows with Dr. Raza of Cardiology, not currently on medications for this Status: Acute Plan - MRI per above - therapy evaluations for alternate causes of symptoms
--- NOTE | 2024-06-29 | CRLHL7_ITS ---
For Patients: As a result of the Century Cures Act, medical imaging exams and procedure reports are released immediately into your electronic medical record. You may view this report before your referring provider. If you have questions, please contact your health care provider. Indication: Dizziness, tingling in hands and fingers Technique: Multiplanar, multisequence MRI of the brain obtained without contrast. Comparison: CT head 06/28/2024 Findings: The ventricles and cortical sulci are age-appropriate in size and configuration. No midline shift or mass effect. No acute intracranial hemorrhage or abnormal extra-axial fluid collection. No evidence of acute/subacute ischemia. Scattered FLAIR hyperintense foci throughout the supratentorial white matter, typical of mild chronic microangiopathy. Midline structures are unremarkable. The major expected intracranial flow voids are visualized. Included bone marrow signal is unremarkable. No suspicious findings in the regional soft tissues. Paranasal sinuses and mastoid air cells have a normal signal. Visualized orbits are unremarkable. Impression: 1. No evidence of acute intracranial abnormality. 2. Mild chronic microangiopathy white-matter changes. Dictated by Leighann Lau MD @ 06/29/2024 5:11:55 PM (Electronically Signed)
[2024-06-29 00:35] VITALS: PULSE 69
[2024-06-29 03:00] VITALS: BP 143/64; PULSE 67; RESP 18; TEMP 36.5; O2SAT 95
[2024-06-29 07:00] VITALS: BP 149/67; PULSE 68; PULSE 73; RESP 16; TEMP 37.2; O2SAT 98
--- NOTE | 2024-06-29 07:31 | PC.NURSE ---
End of shift note ([id number]): Patient admitted from ED at 2008. She was accompanied by her Daughter Elizabet. Patient pleasant, alert and oriented. Ambulated to bathroom with stand by assist. Upon admission pt reported some neck and shoulder discomfort. Denied pain during the night however stated that she had a?headache early this morning. Pt declined any pharmacological interventions offered at that time. She reported that she thought it was related to lack of caffeine. Pt requested a can of coke at that time and reports was effective.?
[2024-06-29] MEDS: ASPIRIN 81 MG TABLET EC PO (09:00)
[2024-06-29] MEDS: SODIUM CHLORIDE 0.9 % (FLUSH) 10 ML SYRINGE 5 ML IVF (09:01)
[2024-06-29 09:40] VITALS: BMI 28.8
[2024-06-29 11:00] VITALS: BP 144/65; PULSE 82; RESP 16; TEMP 37.2; O2SAT 96
--- NOTE | 2024-06-29 14:22 | PC.NURSE ---
End of shift note ([id number]): Pt A&Ox3, pleasant, and cooperative. Indep in room. Continent and using the bathroom frequently. TELE. VSS with elevated BP. LS COA. Denies H/N/V/CP/SOB. Pt reported tolerable chronic R shoulder pain throughout the shift. Pharmacological interventions were refused. Pt expressed improvement of facial numbness being intermittent, and numbness in finger 3-5 improving. Pt had slight dizziness at the beginning of the shift with reposition. Continuing to monitor. Pt has call light within reach.
[2024-06-29 15:00] VITALS: BP 147/67; PULSE 76; PULSE 82; RESP 16; TEMP 36.8; O2SAT 97; O2SAT 98
--- NOTE | 2024-06-29 15:00 | CRLHL7_ITS ---
For Patients: As a result of the 21st Century Cures Act, medical imaging exams and procedure reports are released immediately into your electronic medical record. You may view this report before your referring provider. If you have questions, please contact your health care provider. Indication: Dizziness, tingling in hands and fingers Technique: Multiplanar, multisequence MRI of the cervical spine obtained without contrast. Comparison: CT cervical spine 05/22/2015 Findings: Mild reversal of the normal cervical lordosis. Degenerative grade 1 retrolisthesis at C5-6 and C6-7. No acute osseous abnormality. Unremarkable bone marrow signal. Included posterior fossa structures appear within normal limits. The spinal cord is normal in course, caliber, and signal. Baseline narrowing of the spinal canal, attributed to congenitally short pedicles. No concerning findings identified in the paraspinal soft tissues. Trace T2 hyperintense debris/secretions layer within the proximal trachea. C2-C3: Left asymmetric facet arthropathy. No neural foraminal stenosis. Mild congenital spinal canal narrowing. C3-C4: Right facet arthropathy. No left, moderate right neural foraminal stenosis. Mild congenital spinal canal narrowing. C4-C5: Shallow posterior disc bulge, uncovertebral arthropathy. Moderately severe bilateral neural foraminal stenosis potentially impinging the bilateral C5 nerve roots. Mild-moderate spinal canal narrowing. C5-C6: Posterior disc-osteophyte complex, uncovertebral arthropathy. Moderate right, moderately severe left neural foraminal stenosis with potential left C6 nerve root impingement. Moderate spinal canal stenosis. C6-C7: Posterior disc-osteophyte complex, uncovertebral arthropathy. Moderate bilateral neural foraminal stenosis. Moderate spinal canal stenosis. C7-T1: No neural foraminal or spinal canal stenosis. Impression: 1. Cervical spondylosis and low-grade degenerative spondylolisthesis, progressed relative to 05/22/2015, superimposed on baseline congenital spinal canal narrowing. 2. At C3-C4, moderate right neural foraminal stenosis. 3. At C4-C5, moderately severe bilateral neural foraminal stenosis with potential bilateral C5 nerve root impingement, and mild-moderate spinal canal narrowing. 4. At C5-C6, moderately severe left and moderate right neural foraminal stenosis, with potential left C6 nerve root impingement, and moderate spinal canal stenosis. 5. At C6-C7, moderate bilateral neural foraminal stenosis, with moderate spinal canal stenosis. Dictated by Leighann Lau MD @ 06/29/2024 5:19:16 PM (Electronically Signed)
--- NOTE | 2024-06-29 18:02 | PM.DS1 ---
DS: Providers Provider Date Seen: 06/29/24 Date of admission: 06/28/24 20:06 Primary care physician: Maranda Terry PA-C Admitting Clinician: Leanne Belcher MD Consults: 06/28/24 21:11 Consult to Physical Therapy [CONS] Routine Comment: Reason(s) for PT Consult:: Evaluate and Treat Any Restrictions?:: No Restrictions Consult to Career Services Officer [CONS] Routine Comment: Reason for Consult:: Discharge Planning Needs 06/28/24 21:16 Consult to Occupational Therapy [CONS] Routine Comment: Reason(s) for OT Consult:: Evaluate and Treat Any Restrictions?:: No Restrictions Attending Physician on discharge: Leanne Belcher MD Date of Discharge: 06/29/24 DS: Diagnosis Discharge Diagnosis (1) Dizziness: Status: Acute Problem details: - ddx: CVA, cerebrovascular disease, BPPV - labs stable, no evidence of anemia or electrolyte abnormality - brain MRI ordered and reassuring (2) Paresthesia: Status: Acute Problem details: - intermittent, CVA vs flare of previous cervical injury - C-spine MRI revealed multilevel degenerative disease, no myelopathy - Outpatient EMG recommended per Stroke Neurology (3) Essential (primary) hypertension: Status: Acute Problem details: - on Amlodipine and Metoprolol, allowing elevated BPs at this time during CVA workup - resume home medications upon d/c (4) Hyperlipidemia: Status: Acute Problem details: - total cholesterol >300, LDL >200 on 02/2024 labs, intolerant of statin - follows with Dr. Raza of Cardiology, not currently on medications for this DS: Summary Hospital Course Hospital Course: Jess is admitted to the hospital on 06/28 24 with dizziness and left arm paresthesias. She was admitted for stroke oral out; risk factors include tobacco use and severe hyperlipidemia. Mildly hyperdynamic systolic function on TTE, no other abnormalities. CTA revealed carotid disease, brain MRI revealed no CVA. C spine MRI exhibited multilevel disc disease (history of cervical spine injury), worsened from previous. Stroke Neuro consulted upon patient's presentation and followed Jess throughout her stay. Stroke Neurology recommendations for PCP upon followup: - outpatient EMG to further assess left upper extremity paresthesias, f/u with Neurology prn - annual carotid ultrasounds for follow-up of vascular disease - continue to work on finding a medication for hyperlipidemia that patient is able to tolerate - smoking cessation Patient felt improved on hospital day 1, appropriate for d/c home with close PCP f/u. Time Spent with Patient Time attestation: Total time spent providing and/or coordinating discharge services: Exam Const: Vital Signs, click to edit/add: Vital Signs - 24 hr 06/28/24 18:37 06/28/24 18:38 06/28/24 18:45 Temperature Pulse Rate 64 65 65 Pulse Rate [Pulse Oximeter] Respiratory Rate Blood Pressure 138/65 Blood Pressure [Ri ght Arm] Pulse Oximetry 95 94 91 Oxygen Delivery Me thod 06/28/24 19:00 06/28/24 19:15 06/28/24 19:30 Temperature Pulse Rate 65 72 71 Pulse Rate [Pulse Oximeter] Respiratory Rate Blood Pressure Blood Pressure [Ri ght Arm] Pulse Oximetry 91 95 92 Oxygen Delivery Me thod 06/28/24 19:45 06/28/24 20:00 06/28/24 20:20 Temperature 98.3 F Pulse Rate 70 77 Pulse Rate [Pulse Oximeter] 79 Respiratory Rate 18 Blood Pressure Blood Pressure [Ri ght Arm] 150/72 H Pulse Oximetry 95 96 97 Oxygen Delivery Me thod Room Air 06/28/24 20:20 06/28/24 22:43 06/28/24 23:00 Temperature 97.5 F L Pulse Rate Pulse Rate [Pulse Oximeter] 70 Respiratory Rate 18 18 Blood Pressure Blood Pressure [Ri ght Arm] 125/57 L Pulse Oximetry 95 95 Oxygen Delivery Me thod Room Air Room Air Room Air 06/29/24 00:35 06/29/24 03:00 06/29/24 07:00 Temperature 97.7 F Pulse Rate 69 Pulse Rate [Pulse Oximeter] 67 Respiratory Rate 18 Blood Pressure Blood Pressure [Ri ght Arm] 143/64 H Pulse Oximetry 95 Oxygen Delivery Me thod Room Air Room Air 06/29/24 07:00 06/29/24 07:00 06/29/24 11:00 Temperature 98.9 F 98.9 F Pulse Rate 68 Pulse Rate [Pulse Oximeter] 73 82 Respiratory Rate 16 16 Blood Pressure Blood Pressure [Ri ght Arm] 149/67 H 144/65 H Pulse Oximetry 98 96 Oxygen Delivery Me thod Room Air Room Air DS: Data Data Completed and Pending Labs on day of discharge: Labs from last 24 hours 06/29/24 06/29/24 06/28/24 16:38 16:16 16:15 Hemoglobin A1c Cancelled Pending Lab Acknowledgement Test Added Discharge Plan Discharge Disposition: Home, Self-Care Date of Admission: 06/28/24 20:06 Attending Provider on Discharge: Leanne Belcher Primary Care Provider: Maranda Terry Condition: Stable Anticipated Discharge Date/Time: 06/29/24 18:00 Discharge Medications: Continued metoprolol tartrate 50 mg tablet 50 mg PO BID amlodipine 5 mg tablet 5 mg PO DAILY aspirin 81 mg capsule 81 mg PO DAILY fluticasone propionate 50 mcg/actuation spray,suspension 2 spray INTRANASAL DAILY Discharge Orders: Discharge Order (Routine); Ordered 06/29/24 Ordered By: Leanne Belcher Additional Instructions: No stroke - good news! Still a good idea to quit smoking and find a cholesterol lowering medication that doesn't cause side effects. Your neck MRI does show multilevel disc disease, so keep your followup appointment with Maranda to discuss followup (consider steroids if symptoms persist/worsen) and order an outpatient EMG to further evaluate your L arm symptoms. Activity Level: Activity as Tolerated Discharge Diet: Low Fat/Low Cholesterol Follow Up Appointments: Maranda Terry PA-C [Primary Care Provider] - 07/03/24 11:10 am ([facility] [place] [facility] follow-up. ) Forms: [employer] Info Instructions
--- NOTE | 2024-06-29 19:03 | PC.NURSE ---
Patient was able to receive MRI this evening. Per the results, was cleared for discharge. Instructions and follow up were given to the patient. Patient is in agreement with the plan. All forms were signed and belongings were sent. Pt's daughter present also at this time and walked patient out to exit.
[2024-06-29 20:43] LABS: Hemoglobin A1C* 5.9 % (0-5.6)
== END 2024-06-29 19:04 | disposition home or self-care (01) ==
LOC: ED 19:40 → MEDSURG 20:06
PROVIDERS: Admitting Provider Family Medicine; Emergency Provider Family Medicine; PCP Physician Assistant Medical; Visit Provider Family Medicine
DX: R42 Dizziness and giddiness (principal); R20.2 Paresthesia of skin; I10 Essential (primary) hypertension; Z79.899 Other long term (current) drug therapy; M51.36 Other intervertebral disc degeneration, lumbar region; I65.23 Occlusion and stenosis of bilateral carotid arteries; Z87.828 Personal history of other (healed) physical injury and trauma; Z72.0 Tobacco use; G89.29 Other chronic pain; M25.512 Pain in left shoulder; M54.2 Cervicalgia; Z79.82 Long term (current) use of aspirin; Z98.891 History of uterine scar from previous surgery; Z90.710 Acquired absence of both cervix and uterus; Z98.890 Other specified postprocedural states; E78.5 Hyperlipidemia, unspecified; Z13.1 Encounter for screening for diabetes mellitus
CPT/HCPCS: 36415; 70450; 70496; 70498; 70551; 72141; 80048; 82565; 83036; 85025; 85610; 85730; 93005; 93306; 96360; 97116; 97161; 97165; 99284; 99285; G0378; A9270; J7030; Q9967